=== PATIENT | male | born 1965 | race Two or more races ===

== ENCOUNTER 2024-09-28 13:30 | Day surgery (SDC) | payer MEDICAID, SELFPAY ==
--- NOTE | 2024-09-23 14:20 | EKG_ITS ---
[facility] Test Date: 2024-09-23 Pat Name: KIANA KOLB Department: Room: - Gender: Male Manager Intranet: LALIT : 1965 Requested By: Krzysztof Bill Order Number: [id number] Reading MD: Krzysztof Bill Measurements Intervals [place] Rate: 56 P: 23 WA: 160 QRS: -32 QRSD: 106 T: 18 QT: 386 QTc: 373 Interpretive Statements SINUS BRADYCARDIA MARKED LEFT AXIS DEVIATION [QRS AXIS < -30] S1-S2-S3 PATTERN, CONSISTENT WITH PULMONARY DISEASE, RVH, OR NORMAL VARIANT INCOMPLETE RIGHT BUNDLE BRANCH BLOCK [90+ ms QRS DURATION, TERMINAL R IN V1/V2, 40+ ms S IN I/aVL/V4/V5/V6] No previous ECG available for comparison /[id number]/S0/[id number].pdf
[2024-09-23 14:27] VITALS: BMI 31.9
[2024-09-23 14:50] LABS: Collection Type, Urine Clean Catch
[2024-09-23 15:23] LABS: Basophils # (Auto) 0.1 Thou/mm3 (0.0-0.2); Basophils % (Auto) 1 % (0-2.5); Eosinophils # (Auto) 0.1 Thou/mm3 (0.0-0.5); Eosinophils % (Auto) 1 % (0-10); Hematocrit 43.9 % (41.0-53.0); Hemoglobin 14.7 g/dL (13.5-16.0); Immature Granulocytes Auto 0.06 Thou/mm3 (0.00-0.00); Lymphocytes # (Auto) 3.0 Thou/mm3 (1.0-4.8); Lymphocytes % (Auto) 28 % (10-50); Mean Corpuscular HGB Conc 33.5 g/dl (31.0-37.0); Mean Corpuscular Hemoglobin 30.9 pg (25.0-35.0); Mean Corpuscular Volume 92 fL (80-100); Monocytes # (Auto) 0.9 Thou/mm3 (0.0-0.8); Monocytes % (Auto) 8 % (0-12); Neutrophils # (Auto) 6.5 Thou/mm3 (1.8-7.7); Neutrophils % (Auto) 61 % (37-80); Nucleated Red Blood Cell # 0.00 Thou/mm3 (0.00-0.00); Nucleated Red Blood Cell % 0 /100 WBC (0); Platelet Count 335 Thou/mm3 (140-440); RDW Standard Deviation 45.8 fL (35.1-43.9); Red Blood Count 4.75 Miln/mm3 (4.50-5.90); White Blood Count 10.7 Thou/mm3 (3.8-10.6)
[2024-09-23 15:29] LABS: Partial Thromboplastin Time 27.9 Seconds (22.0-36.0)
[2024-09-23 15:37] LABS: Bacteria,Urine 1+; Bilirubin,Urine Negative (Negative); Blood,Urine Negative (Negative); Clarity,Urine Clear (Clear/Hazy); Color,Urine Lt-Yellow (Lt Yel-Yel); Glucose, Urine Negative (Negative); Ketones,Urine Negative (Negative); Leukocyte Esterase,Urine Negative (Negative); Nitrite,Urine Negative (Negative); PH,Urine 6.0 (5.0-7.0); Protein,Urine Negative (Neg - Trace); RBC,Urine 12 /hpf (0-3); Specific Gravity,Urine 1.018 (1.001-1.035); Squamous Epithelial Cell,Urine 1 /hpf (0-5); Urobilinogen,Urine Negative mg/dL (0.0-1.0); WBC,Urine 4 /hpf (0-5)
[2024-09-23 15:41] LABS: Sperm,Urine Present
[2024-09-23 15:48] LABS: Alanine Aminotransferase < 7 U/L (10-49); Albumin, Serum 4.5 gm/dL (3.5-5.0); Albumin/Globulin Ratio 1.6 (1.2-2.2); Alkaline Phosphatase 84 U/L (46-116); Anion Gap 8 (7-16); Aspartate Amino Transferase 16 U/L (0-34); BUN/Creatinine Ratio 12 Ratio (12-20); Bilirubin,Total 0.3 mg/dL (0.3-1.2); Blood Urea Nitrogen 11 mg/dL (9-23); Calcium 9.3 mg/dL (8.3-10.6); Calcium (Corrected) 9.3 mg/dL (8.5-10.1); Carbon Dioxide 26.6 mMol/L (20.0-31.0); Chloride 104 mMol/L (98-107); Creatinine (Component) 0.9 mg/dL (0.6-1.3); Estimated Creatinine Clearance 95.0 mL/min (>60); Globulin 2.8 gm/dL (2.3-3.5); Glucose 94 mg/dL (74-106); Osmolality,Calculated 276 (275-295); Potassium 4.7 mMol/L (3.4-5.1); Sodium 139 mMol/L (136-145); Total Protein 7.3 gm/dL (5.7-8.2); eGFR > 60 See Note
[2024-09-28] VITALS (9 sets, daily range): BP systolic 103–148; BP diastolic 56–84; PULSE 63–71; RESP 12–16; TEMP 36.4–36.8; O2SAT 93–97; BMI 31.1
--- NOTE | 2024-09-28 17:14 | SUR.PHASEI ---
pt arrived to PACU via gurney with LMA which was removed by Dr Damon upon arrival, breathing unlabored, dressing to right upper back clean, dry, and intact, report from Lindsey YING and Dr Damon
--- NOTE | 2024-09-28 17:40 | SUR.PHASEI ---
pt tolerating oral fluids without difficulty swallowing or n/v
--- NOTE | 2024-09-28 18:45 | SUR.PHASEII ---
pt awake, alert, able to follow commands, breathing unlabored, dressing to right upper back clean, dry, and intact, discharge instructions given with family member present using telephone consultative sales associate Tracy ID#[id number], all questions answered, pt able to dress self and ambulate to wheelchair with steady gait, pt discharged via wheelchair with all belongings and copies of discharge paperwork.
--- NOTE | 2024-12-11 10:51 | PD.SUROPNT ---
Date of Procedure 09/28/24 Pre Op Diagnosis Infected painful epidermal cyst right upper back. Post Op Diagnosis Same. Procedure Excision of inflamed large epidermal cyst right upper back. On 09/28/2024. Findings This patient has a 5 to 6 cm inflamed area on the back he is appears to be a sebaceous cyst requires excision. Procedure Description Patient was interviewed in the preoperative area and risk benefits and alternatives of the procedure were discussed with the patient informed consent is obtained. Site and side were marked. Patient was taken to the operating room after that and then positioned in the left decubitus position. MAC anesthesia was given to the patient and local anesthesia is utilized curvilinear elliptical transverse incision is made. The dissection is carried out and the cyst is excised in its entirety all the way up to the fascia. Cyst is removed cavity is examined for presence of fragments of the cyst they were all coagulated and then the skin is approximated by 3-0 Vicryl sutures and 2-0 nylon interrupted sutures. Estimated loss of blood less than 10 cc patient taught the procedure very well. Sterile dressing is applied. Anesthesia MAC Drains None. Implants None Pathology / specimen Other (Epidermoid cyst back) Estimated Blood Loss 5 Condition Stable Disposition PACU Surgeon Krzysztof Bill MD Surgical Staff Operation Date: 09/28/24 15:30 Case Staff Anesthesiologist: Geovany Damon
== END 2024-09-28 18:45 | disposition home or self-care (01) ==
PROVIDERS: PCP Physician Assistant Medical; Referring Provider Specialist; Visit Provider Specialist
PROC: (CPT 11406; principal; 2024-09-28 15:15)
DX: L72.0 Epidermal cyst (principal); Z01.810 Encounter for preprocedural cardiovascular examination
CPT/HCPCS: 11406; 36415; 80053; 81001; 85025; 85730; 93005; A4217; A4649; J0690; J1100; J2371; J2704; J2765; J3010; J3490; J0665